=== PATIENT | female | born 1985 | race Caucasian/White ===

== ENCOUNTER → 2022-09-09 | Outpatient (RCR) | payer OTHER | END | disposition home or self-care (01) | LOC: WSPT | DX: M54.9 Dorsalgia, unspecified (principal) ==

== ENCOUNTER → 2022-09-09 | Outpatient (RCR) | payer OTHER | LOC: WSPT | DX: M54.2 Cervicalgia (principal); G89.29 Other chronic pain ==

== ENCOUNTER 2022-10-09 13:30 | Outpatient (RCR) | payer OTHER | END 2022-10-10 | LOC: WSPT | DX: G93.5 Compression of brain (principal) ==

== ENCOUNTER 2022-10-09 13:30 | Outpatient (RCR) | payer OTHER | END 2022-10-10 | disposition home or self-care (01) | LOC: WSPT | DX: M54.2 Cervicalgia (principal); G89.29 Other chronic pain ==

== ENCOUNTER 2022-10-20 13:30 | Outpatient (RCR) | payer OTHER | END 2022-11-09 | disposition home or self-care (01) | LOC: WSPT | DX: G93.5 Compression of brain (principal); M54.2 Cervicalgia ==

== ENCOUNTER 2022-10-20 13:30 | Outpatient (RCR) | payer OTHER | END 2022-10-21 11:49 | disposition home or self-care (01) | LOC: WSPT 13:30 | DX: G93.5 Compression of brain (principal); M54.2 Cervicalgia ==